=== PATIENT | female | born 1955 | race Asian ===

== ENCOUNTER 2018-01-09 07:37 | Day surgery (SDC) | payer OTHER ==
[~2018-01-09] VITALS: Ht 149.9 cm; Wt 58.6 kg
[~2018-01-09 07:37] MED LIST: ASCO500 PO; CALC-1038 PO; CHOL50004 PO; DICLOFENAC SODIUM 0.1% 2.5 ML OPHTHALMIC SOLUTION ONE; FOLI-74 PO; GLUC-147 PO; MOXIFLOXACIN HCL 0.5% 3 ML OPHTHALMIC SOLUTION ONE; PHENYLEPHRINE HCL 2.5% 2 ML OPHTHALMIC SOLUTION ONE; RINGERS SOLUTION,LACTATED 0 ML IV ONE; RINGERS SOLUTION,LACTATED 500 ML IV ONE; TROPICAMIDE 1% 2 ML OPHTHALMIC SOLUTION ONE
[2018-01-09] MEDS ORDERED: POVIDONE-IODINE 10% 15 ML SOLUTION UD TP ONE (07:38)
[2018-01-09] MEDS ORDERED: HYALURONATE SOD/CHONDROITIN SOD 0.5 ML VIAL IO ONE (07:38)
[2018-01-09] MEDS ORDERED: HYALURONATE SODIUM 12 MG/ML 0.8 ML SYRINGE IO ONE (07:38)
[2018-01-09] MEDS ORDERED: LIDOCAINE HCL/PF 1% 2 ML VIAL IM ONE (07:38)
[2018-01-09] MEDS ORDERED: DEXAMETHASONE SOD PHOS 4 MG/ML VIAL IVP ONE (07:38)
[2018-01-09] MEDS ORDERED: TETRACAINE HCL VISCOUS 0.5% 0.6 ML OPHTHALMIC SOLUTION OS ONE (07:38)
[2018-01-09] MEDS ORDERED: RINGERS SOLUTION,LACTATED 500 ML IV ONE (08:00)
[2018-01-09] MEDS ORDERED: MOXIFLOXACIN HCL 0.5% 3 ML OPHTHALMIC SOLUTION OS ONE (08:00)
[2018-01-09] MEDS ORDERED: DICLOFENAC SODIUM 0.1% 2.5 ML OPHTHALMIC SOLUTION OS ONE (08:00)
[2018-01-09] MEDS ORDERED: 0.9% SODIUM CHLORIDE 10 ML SYRINGE IVP PRN (08:00)
[2018-01-09] MEDS: TROPICAMIDE 1% 2 ML OPHTHALMIC SOLUTION OS SCH ×2 (08:16→08:21)
[2018-01-09] MEDS: PHENYLEPHRINE HCL 2.5% 2 ML OPHTHALMIC SOLUTION OS SCH ×2 (08:17→08:21)
[2018-01-09] MEDS ORDERED: FentaNYL CITRATE-PF 100 MCG/2 ML VIAL IVP ONE (12:00)
[2018-01-09] MEDS ORDERED: MIDAZOLAM HCL 2 MG/2 ML VIAL IVP ONE (12:00)
== END 2018-01-09 10:15 | disposition home or self-care (01) ==
LOC: SURGERY 07:37
PROVIDERS: ATTEND Specialist
DX: H25.012 Cortical age-related cataract, left eye (principal); E66.3 Overweight; Z88.1 Allergy status to other antibiotic agents; Z79.899 Other long term (current) drug therapy; Z68.26 Body mass index [BMI] 26.0-26.9, adult
CPT/HCPCS: 65785; 66984; 93005; C1780; J1100; J2250; J3010; J3490 ×2; J7120

== ENCOUNTER 2018-06-26 07:53 | Day surgery (SDC) | payer OTHER ==
[~2018-06-26] VITALS: Ht 152.4 cm; Wt 58.2 kg
[~2018-06-26 07:53] MED LIST changes: -RINGERS SOLUTION,LACTATED 0 ML IV ONE
[2018-06-26] MEDS ORDERED: HYALURONATE SODIUM 12 MG/ML 0.8 ML SYRINGE IO ONE (07:54)
[2018-06-26] MEDS ORDERED: HYALURONATE SOD/CHONDROITIN SOD 0.5 ML VIAL IO ONE (07:54)
[2018-06-26] MEDS ORDERED: TETRACAINE HCL VISCOUS 0.5% 0.6 ML OPHTHALMIC SOLUTION OS ONE (07:54)
[2018-06-26] MEDS ORDERED: LIDOCAINE/PF 1% 2 ML VIAL IM ONE (07:54)
[2018-06-26] MEDS ORDERED: POVIDONE-IODINE 10% 15 ML SOLUTION UD TP ONE (07:54)
[2018-06-26] MEDS ORDERED: DEXAMETHASONE SOD PHOS 4 MG/ML VIAL IVP ONE (07:54)
[2018-06-26] MEDS ORDERED: MOXIFLOXACIN HCL 0.5% 3 ML OPHTHALMIC SOLUTION OD ONE (08:00)
[2018-06-26] MEDS ORDERED: RINGERS SOLUTION,LACTATED 500 ML IV ONE (08:00)
[2018-06-26] MEDS ORDERED: DICLOFENAC SODIUM 0.1% 2.5 ML OPHTHALMIC SOLUTION OD ONE (08:00)
[2018-06-26] MEDS: PHENYLEPHRINE HCL 2.5% 2 ML OPHTHALMIC SOLUTION OD SCH ×2 (08:53→08:58)
[2018-06-26] MEDS: TROPICAMIDE 1% 2 ML OPHTHALMIC SOLUTION OD SCH ×2 (08:53→08:58)
[2018-06-26] MEDS ORDERED: LIDOCAINE/PF 1% 2 ML VIAL ONE (11:19)
[2018-06-26] MEDS ORDERED: MIDAZOLAM HCL 2 MG/2 ML VIAL IVP ONE (12:00)
[2018-06-26] MEDS ORDERED: FentaNYL CITRATE-PF 100 MCG/2 ML VIAL IVP ONE (12:00)
== END 2018-06-26 12:35 | disposition home or self-care (01) ==
LOC: SURGERY 07:53
PROVIDERS: ATTEND Specialist
DX: H25.011 Cortical age-related cataract, right eye (principal); Z88.1 Allergy status to other antibiotic agents; Z98.42 Cataract extraction status, left eye; Z79.899 Other long term (current) drug therapy; Z98.890 Other specified postprocedural states
CPT/HCPCS: 65785; 66984; 93005; C1780; J2250; J3010; J3490; J7120; J1100

== ENCOUNTER 2022-05-21 19:16 | Emergency (ER) | payer OTHER ==
[~2022-05-21] VITALS: Ht 152.4 cm; Wt 61.4 kg
[~2022-05-21 19:16] MED LIST changes: +CHOL500013 PO; -CHOL50004 PO; -DICLOFENAC SODIUM 0.1% 2.5 ML OPHTHALMIC SOLUTION ONE; -MOXIFLOXACIN HCL 0.5% 3 ML OPHTHALMIC SOLUTION ONE; -PHENYLEPHRINE HCL 2.5% 2 ML OPHTHALMIC SOLUTION ONE; -RINGERS SOLUTION,LACTATED 500 ML IV ONE; -TROPICAMIDE 1% 2 ML OPHTHALMIC SOLUTION ONE
[2022-05-21] MEDS ORDERED: AMOX250C4 PO ×2 (21:49→22:18)
[2022-05-21 22:22] VITALS: BP 134/82
== END 2022-05-21 22:24 | disposition home or self-care (01) ==
LOC: EMS 19:16
DX: L03.011 Cellulitis of right finger (principal); Z88.1 Allergy status to other antibiotic agents
CPT/HCPCS: 26010; 99284; Z7502